=== PATIENT | female | born 1950 | race Caucasian/White ===

== ENCOUNTER 2017-12-17 10:19 | Inpatient (IN) | payer OTHER, MEDICARE ==
--- NOTE | 2017-12-17 10:51 | ED Physician Chart ---
ED Chief Complaint/HPI - Patient Information Date Seen:: 12/17/17 Time Seen:: 10:51 Chief Complaint:: Chest pain History of Present Illness:: 67 yo female had chest pain for 3 days. The pain started on the right chest when was walking 3 days ago, the pain then radiated to left chest and left shoulder and left neck. The patient also had SOB on exertion. Each time the pain last for 20 minutes and would return when she had activity. The pain had became worse. She had history of DM II and hyperlipidemia. She had never had chest pain before. She was smoking cigarettes some days. Allergies:: Allergies Allergy/AdvReac Type Severity Reaction Status Date / Time MDX No Known Allergies - Nka Allergy Verified 12/26/15 23:20 [No Known Allergies - Nka] ED Review of Systems - Review of Systems General/Constitutional: No fever, No chills Skin: No skin lesions Head: Headache Eyes: No pain ENT: No earache Neck: Neck pain Cardio Vascular: Chest pain Pulmonary: SOB GI: No nausea, No vomiting Musculoskeletal: No bone or joint pain Neurological: No focal symptoms ED Past Medical History - Past Medical History Past Medical History: HTN, DM, Dyslipidemia, Arthritis Social History: Smoker, No Alcohol, No Drug Use Surgical History: Cholecystectomy Family Medical History - Family Member Mother History Unknown: Yes Ethnicity: ED Physical Exam - Physical Examination General/Constitutional: Awake, Alert Head: Atraumatic Eyes: PERRL, EOMI Skin: No skin lesions ENMT: Nasal exam nl Neck: No nuchal rigidity Respiratory: No Wheeze/Rhonchi/Rales Cardio Vascular: RRR, No murmur, gallop, rubs, NL S1 S2 GI: No tenderness/rebounding/guarding Extremities: normal strength in all extremities Neuro/Psych: No focal deficits ED Labs/Radiology/EKG Results - EKG Interpretations EKG Time:: 10:23 Rate & Rhythm: Sinus rhythm [place]: Left axis deviation ED Assessment - Assessment General Assessment: Chest pain DM II, poorly controlled Hypertension Dehydration Assessment/Comments:: CBC, CMP, UA CXR, EKG Trop I BNP D-dimer Aspirin 325mg PO Nitroglycerin 0.4mg SL NS 1L IV bolus Tylenol 650mg PO Admit for cardiac work up ED Septic Shock - . Is Septic Shock (SBP<90, OR Lactate>4 mmol\L) present?: No ED Reassessment (Disposition) - Reassessment Reassessment Condition:: Improved - Patient Disposition Discharge/Transfer:: Acute Care w/in this hosp Admitting Medical Physician:: Christiano Acuña Vitals and Appearance - Vitals Vitals: Vital Signs - 24 hr 12/17/17 12/17/17 12/17/17 10:57 11:21 11:27 Temp 98.3 F 97.7 F HR 83 67 64 RR 16 16 BP 157/85 133/73 133/73 O2 Sat % 96 96 12/17/17 12:13 Temp 97.5 F HR 59 RR 16 BP 128/69 O2 Sat % 100
[2017-12-17 11:04] LABS: % BASOPHILS 0.1 % (0.0-2.0); % EOSINOPHILS 1.5 % (0.0-5.0); % LYMPHOCYTES 24.3 % (20.0-50.0); % MONOCYTES 7.7 % (2.0-10.0); % NEUTROPHILS 66.4 % (40.0-80.0); EOSINOPHILE ABSOLUTE 0.1 Th/cmm (0.1-0.4); HEMATOCRIT 43.3 % (41.0-60); HEMOGLOBIN 14.3 gm/dL (12-16); LYMPHOCYTE ABSOLUTE 1.9 Th/cmm (1.5-3.0); MEAN CELL VOLUME 90.9 fl (81-100); MEAN CORPUSCULAR HEMOGLOBIN 30.1 pg (27.0-31.0); MEAN CORPUSCULAR HGB CONC 33.1 pg (28.0-36.0); MEAN PLATELET VOLUME 8.3 fl; MONOCYTE ABSOLUTE 0.6 Th/cmm (0.3-1.0); NEUTROPHILE ABSOLUTE 5.2 Th/cmm (1.8-8.0); RED BLOOD COUNT 4.76 Mil/cmm (3.80-5.20); RED CELL DISTRIBUTION WIDTH 12.9 % (11.5-20.0)
[2017-12-17 11:05] LABS: PLATELET COUNT 370 Th/cmm (150-400); WHITE BLOOD COUNT 7.8 Th/cmm (4.8-10.8)
[2017-12-17 11:21] LABS: ALB/GLOB RATIO 1.4 (1.0-1.8); ALBUMIN 4.2 gm/dL (3.7-5.3); ALKALINE PHOSPHATASE 58 U/L (34-104); ANION GAP 11.5 (7.0-16.0); BILIRUBIN,TOTAL 0.5 mg/dL (0.3-1.0); BUN - UREA NITROGEN 17 mg/dL (7-25); CHLORIDE 107 mEq/L (98-107); CHOLESTEROL 154 mg/dL (<200); CREATININE - SERUM 0.7 mg/dL (0.6-1.2); GFR AFRICAN-AMERICAN > 60.0 ml/min (>90); GFR NON AFRICAN-AMERICAN > 60.0 ml/min; GLUCOSE 212 mg/dL (70-105); HDL -HIGH DENSITY LIPOPROTEIN 50 mg/dL (23-92); POTASSIUM SERUM 3.5 mEq/L (3.5-5.1); SGOT 14 U/L (13-39); SGPT/ALT 12 U/L (7-52); SODIUM SERUM 138 mEq/L (136-145); TOTAL PROTEIN,SERUM 7.2 gm/dL (6.0-8.3); TRIGLYCERIDES 139 mg/dL (<150)
[2017-12-17] MEDS ORDERED: Sodium Chloride 0.9% 1,000 ML IV ONE (11:32)
[2017-12-17 13:13] LABS: A1C % 7.9 % (4.0-6.0)
[2017-12-17 19:52] LABS: INR 0.95 (0.5-1.4); PROTHROMBIN TIME (TEST) 9.9 SECONDS (9.5-11.5)
[2017-12-17] MEDS ORDERED: Enoxaparin Subq per Pharmacy MC SCH (21:00)
[2017-12-17] MEDS ORDERED: Enoxaparin 40 mg/0.4 mL 0.4mL Syr SUBQ SCH (21:00)
[2017-12-17] MEDS ORDERED: Morphine Sulfate 2 mg/mL 1mL Syr IVP PRN (21:11)
[2017-12-18] MEDS: INSULIN ASPART SLIDING SCALE 100 UNITS/ML UNIT SUBQ SCH ×3 (06:45→16:33)
[2017-12-18 07:07] LABS: CHOLESTEROL 140 mg/dL (<200); HDL -HIGH DENSITY LIPOPROTEIN 39 mg/dL (23-92); TRIGLYCERIDES 186 mg/dL (<150)
--- NOTE | 2017-12-18 07:41 | Diagnostic Imaging Report ---
CHEST X-RAY: AP view INDICATION: Chest pain COMPARISON: 12/27/2015 FINDINGS: Chronic lung changes are noted with no focal consolidation or effusions. Borderline cardiomegaly is noted. Degenerative changes of the spine are noted. IMPRESSION: Chronic lung changes with no focal airspace consolidation identified. Borderline cardiomegaly.
--- NOTE | 2017-12-18 08:45 | History and Physical ---
History of Present Illness - HPI Chief Complaint: chest pain x 3 days HPI: 67 y/o female who presents to [facility] for 3 day h/o CP. Patient states to have pain from the right side of the chest with exertion which then radiated to the left should,arm,neck. Patient admits to SOB with exertion. She has a previous medical history of diabetes mellitus, hypertension and has history of smoking cigarettes for the past few days Initial Labwork WBC 7.8 H/H 14.3/43.3 plat 370K Na 138 K 3.5 Bun/Cr 17/0.7 glu 212 HgA1c 7.9 trop 0.05-->0.22-->0.29-->0.31 LDL 76 HDL 39 TC 140 Tri 186 Patient was subsequently admitted to telemetry for further evaluation and treatment. Vital Signs: Last Vital Signs Temp 98.4 F 12/18/17 04:00 Pulse 68 12/18/17 04:00 Resp 17 12/18/17 04:00 BP 139/72 12/18/17 04:00 Pulse Ox 98 12/18/17 04:00 Past Medical History Cardiovascular: Report: HTN, Hyperlipidemia Pulmonary: Report: Bronchitis ONCOLOGY CONSULTANT: Report: No Pertinent Hx GI: Report: No Pertinent Hx Psych: Report: No Pertinent Hx Musculoskeletal: Report: No Pertinent Hx Rheumatologic: Report: No pertinent Hx Infectious Disease: Report: No Pertinent Hx Renal/: Report: No Pertinent Hx Endocrine: Report: Diabetes Dermatology: Report: No Pertinent Hx - Past Surgical History Past Surgical History: Cholecystectomy Family Medical History - Family Member Mother History Unknown: Yes Ethnicity: Social History Smoke: 1 pack per day Alcohol: None Drugs: None Lives: With Family - Medications Home Medications: Home Medication Medication Instructions Recorded Type Metformin Hydrochloride [Metformin 500 mg PO BID 10/26/12 History HCl] Aspirin [Aspirin Chewable] 1 tab PO DAILY 12/26/15 History Rosuvastatin Calcium [Crestor] 10 mg PO DAILY 12/26/15 History Gabapentin [Neurontin*] 100 mg PO Q8H PRN #20 cap 12/27/15 Rx - Allergies Allergies/Adverse Reactions: Allergies Allergy/AdvReac Type Severity Reaction Status Date / Time No Known Allergies Allergy Verified 12/17/17 10:55 Review of Systems - Review of Systems Constitutional: Report: No Significant Eyes: Report: No Significant ENT: Report: No Significant Respiratory: Report: No Significant Cardiovascular: Report: Chest Pain Gastrointestinal: Report: No Significant Genitourinary: Report: No Significant Musculoskeletal: Report: No Significant Skin: Report: No Significant Neurological: Report: No Significant Physical Exam - Physical Exam HEENT: Report: Ears Nose Throat within normal limits, Pharnyx within normal limits Neck: Report: Within normal limits. Denies: Thyromegaly Cardiovascular Systems: Report: +s1/s2 noted, Regular, Rate and Rhythm Respiratory: Report: Breath Sounds are within normal limits, Clear to Auscultation of lung leiva Abdomen: Report: Non-tender to palpation Back: Report: Inspection of back is within normal limits. Extremities: Report: Non-tender to palpation. Skin: Report: Color of skin is within normal limits, Warm Neuro/Psych: Report: Mood affect is within normal limits, A+Ox3, CN II-XII intact - Lab Results All Lab Results last 24 hours: Laboratory Results - last 24 hr 12/17/17 12/18/17 12/18/17 18:00 00:40 05:42 POC Glucose 144 H Troponin I 0.22 H* D 0.29 H* D Triglycerides Cholesterol LDL Cholesterol Direct HDL Cholesterol TSH 12/18/17 12/18/17 12/18/17 06:36 06:36 06:36 POC Glucose Troponin I 0.31 H* Triglycerides 186 H Cholesterol 140 LDL Cholesterol Direct 76 HDL Cholesterol 39 TSH 1.29 - Assessment Assessment: Current Active Problems Problem Status Onset CHEST PAIN WITH RADIATION TO BACK/NECK Acute chest pain acs ruled in hypertension diabetes mellitus hyperlipidemia smoker - Plan Plan: cardiology consult lovenox 60mg daily continue home meds
[2017-12-18] MEDS ORDERED: ROSUVASTATIN CALCIUM 10 MG PO SCH (09:00)
[2017-12-18] MEDS ORDERED: METFORMIN HYDROCHLORIDE 500 MG PO SCH (09:00)
[2017-12-18] MEDS: Aspirin 81mg Chewable Tab PO SCH ×2 (09:57→13:38)
[2017-12-18] MEDS: Pantoprazole 40 mg EC Tab PO SCH (09:57)
[2017-12-18] MEDS: Enoxaparin 60 mg/0.6 mL 0.6mL Syr SUBQ SCH ×2 (09:58→21:54)
--- NOTE | 2017-12-18 10:21 | Consultation ---
DATE OF CONSULTATION: 12/17/2017 HISTORY OF PRESENT ILLNESS: This 67-year-old female was seen and examined at the courtesy of Dr. Acuña. The patient was admitted here with chest pains, described the pain being precordial in location, some radiation to the axilla. Was evaluated in the Emergency Room and then admitted. The patient does have a history of arteriosclerotic heart disease, history of diabetes, history of hyperlipidemia. She is status post cholecystectomy. On questioning, there was no history of headache, no history of dizziness, no history of syncope, no history of seizures, no history of cough, no history of fever, no history of any hemoptysis, no history of palpitations, no history of orthopnea, no history of PND, no history of abdominal pain. No history of nausea or vomiting. No history of hematemesis. No history of melena, no history of bleeding per rectum or change in bowel habits. No history of swelling over the legs, no history of intermittent claudications or phlebitis. PAST MEDICAL HISTORY: Usual childhood diseases. No history of rheumatic fever. No history of scarlet fever. Other past history as mentioned above. FAMILY HISTORY: Arteriosclerotic heart disease. SOCIAL HISTORY: Denies smoking or drinking. PHYSICAL EXAMINATION: VITAL SIGNS: Heart rate was 83, blood pressure was 157/85, temperature 98.3, respirations 16. SKIN: Normal. HEENT: Head normocephalic. Eyes, conjunctivae are pink. There is no icterus in the eyes. Pupils equally reactive to light. NECK: There were no increased jugular venous distention, no thyromegaly, no lymphadenopathy. Carotids equal on both sides. CHEST: Bilaterally symmetrical, moved well with respirations. Respiratory movements equal on both sides. Trachea is central. There is note to percussion. Breath sounds, few scattered rales. CARDIOVASCULAR SYSTEM: PMI not well localized. There is no pulsation or thrill. No parasternal heave. S1 normal, S2 physiologic. There was no S3, no rub. ABDOMEN: Soft. No tenderness, no rigidity, no guarding, and no organomegaly. Bowel sounds normal. EXTREMITIES: There is no edema, no calf tenderness. Peripheral pulses slightly diminished. LABORATORY DATA: On reviewing the labs, hemoglobin A1c was 7.9. TSH was 0.98. D-dimer was 193, that is within normal limits. Sodium 138, potassium 3.5, chloride 107, CO2 of 23, BUN 17, creatinine 0.7, glucose 212, cholesterol 154, triglycerides 139, HDL 50, LDL 90. BNP was 93.1, that is within normal limits. First troponin was 0.05. WBC was 7.8, hemoglobin 14.3, hematocrit 43.3, platelet count was 370. EKG showed sinus rhythm, heart rate 62, normal axis, T-wave inversion in the precordial leads from V1-V5 which may be due to subendocardial ischemia. IMPRESSION: Chest pains, rule out myocardial infarction, coronary artery disease, diabetes mellitus, hyperlipidemia, status post cholecystectomy, hypertension. PLAN: Suggest to continue present management. Suggest to continue cardiac monitoring. To get serial EKG, serial troponins. Get echocardiogram in a.m. In the meantime, to continue aspirin, Lovenox, Isordil 10 mg t.i.d., Lopressor 25 q. 8, Zocor 20, lisinopril 5 daily. Further recommendations will be made depending on the results of the tests available. JOB# [id number]
[2017-12-19] MEDS: INSULIN ASPART SLIDING SCALE 100 UNITS/ML UNIT SUBQ SCH ×2 (01:25→07:32)
--- NOTE | 2017-12-19 08:40 | General Progress Note ---
Subjective - Review of Systems Service Date: 12/19/17 Subjective: Awake, Alert, Afebrile. Objective - Results Result Diagrams: 12/17/17 10:30 12/17/17 10:30 Recent Labs: Laboratory Last Values WBC 7.8 Th/cmm (4.8-10.8) D 12/17/17 10:30 RBC 4.76 Mil/cmm (3.80-5.20) 12/17/17 10:30 Hgb 14.3 gm/dL (12-16) 12/17/17 10:30 Hct 43.3 % (41.0-60) 12/17/17 10:30 MCV 90.9 fl (81-100) 12/17/17 10:30 MCH 30.1 pg (27.0-31.0) 12/17/17 10:30 MCHC Differential 33.1 pg (28.0-36.0) 12/17/17 10:30 RDW 12.9 % (11.5-20.0) 12/17/17 10:30 Plt Count 370 Th/cmm (150-400) D 12/17/17 10:30 MPV 8.3 fl 12/17/17 10:30 Neutrophils % 66.4 % (40.0-80.0) 12/17/17 10:30 Lymphocytes % 24.3 % (20.0-50.0) 12/17/17 10:30 Monocytes % 7.7 % (2.0-10.0) 12/17/17 10:30 Eosinophils % 1.5 % (0.0-5.0) 12/17/17 10:30 Basophils % 0.1 % (0.0-2.0) 12/17/17 10:30 PT 9.9 SECONDS (9.5-11.5) 12/17/17 10:30 INR 0.95 (0.5-1.4) 12/17/17 10:30 PTT (Actin FS) 25.0 SECONDS (26.0-38.0) L 12/17/17 10:30 D-Dimer 193 ng/mL (100-400) 12/17/17 10:30 Sodium 138 mEq/L (136-145) 12/17/17 10:30 Potassium 3.5 mEq/L (3.5-5.1) 12/17/17 10:30 Chloride 107 mEq/L (98-107) 12/17/17 10:30 Carbon Dioxide 23.0 mEq/L (21.0-31.0) 12/17/17 10:30 Anion Gap 11.5 (7.0-16.0) 12/17/17 10:30 BUN 17 mg/dL (7-25) 12/17/17 10:30 Creatinine 0.7 mg/dL (0.6-1.2) 12/17/17 10:30 Est GFR ( Amer) > 60.0 ml/min (>90) 12/17/17 10:30 Est GFR (Non-Af Amer) > 60.0 ml/min 12/17/17 10:30 BUN/Creatinine Ratio 24.3 12/17/17 10:30 Glucose 212 mg/dL (70-105) H 12/17/17 10:30 POC Glucose 128 MG/DL (70 - 105) H 12/19/17 06:12 Hemoglobin A1c % 7.9 % (4.0-6.0) H 12/17/17 10:30 Calcium 9.0 mg/dL (8.6-10.3) 12/17/17 10:30 Total Bilirubin 0.5 mg/dL (0.3-1.0) 12/17/17 10:30 AST 14 U/L (13-39) 12/17/17 10:30 ALT 12 U/L (7-52) 12/17/17 10:30 Alkaline Phosphatase 58 U/L (34-104) 12/17/17 10:30 Troponin I 0.20 ng/mL (0.01-0.05) H* D 12/19/17 07:10 B-Natriuretic Peptide 93.1 pg/mL (5.0-100.0) 12/17/17 10:30 Total Protein 7.2 gm/dL (6.0-8.3) 12/17/17 10:30 Albumin 4.2 gm/dL (3.7-5.3) 12/17/17 10:30 Globulin 3.0 gm/dL 12/17/17 10:30 Albumin/Globulin Ratio 1.4 (1.0-1.8) 12/17/17 10:30 Triglycerides 186 mg/dL (<150) H 12/18/17 06:36 Cholesterol 140 mg/dL (<200) 12/18/17 06:36 LDL Cholesterol Direct 76 mg/dL (75-193) 12/18/17 06:36 HDL Cholesterol 39 mg/dL (23-92) 12/18/17 06:36 TSH 1.29 uIU/ml (0.34-5.60) 12/18/17 06:36 - Physical Exam Vitals and I&O: Vital Signs Temp 98.2 F 12/19/17 08:10 Pulse 63 12/19/17 08:10 Resp 17 12/19/17 08:10 BP 125/80 12/19/17 08:10 Pulse Ox 98 12/19/17 08:10 Intake & Output 12/18/17 12/19/17 12/19/17 18:59 06:59 18:59 Intake Total 850 150 Balance 850 150 Weight (lbs) 70.76 kg 70.76 kg Intake: Oral 850 Tube Feeding 150 Other: # Voids 3 3 # Bowel Movements 4 0 Active Medications: Current Medications Acetaminophen (Tylenol) 650 mg PO Q6H PRN PRN Reason: Pain (Moderate) Stop: 02/15/18 20:58 Last Admin: 12/18/17 21:54 Dose: 650 mg Aspirin (Aspirin Chewable) 81 mg PO DAILY [facility] Stop: 02/16/18 08:59 Last Admin: 12/18/17 09:57 Dose: 81 mg Aspirin (Aspirin Chewable) 81 mg PO DAILY [facility] Stop: 02/16/18 08:59 Last Admin: 12/18/17 13:38 Dose: Not Given Enoxaparin Sodium (Lovenox) 60 mg SUBQ Q12HR [facility] Stop: 02/16/18 08:59 Last Admin: 12/18/17 21:54 Dose: 60 mg Gabapentin (Neurontin) 100 mg PO Q8HR PRN PRN Reason: Pain (Moderate) Stop: 02/15/18 20:59 Last Admin: 12/17/17 21:12 Dose: 100 mg Insulin Aspart (Novolog Insulin Sliding Scale) 0 units SUBQ ACHS [facility] PRN Reason: Protocol Stop: 02/16/18 07:29 Last Admin: 12/19/17 07:32 Dose: Not Given Isosorbide Dinitrate (Isordil) 10 mg PO TID [facility] Stop: 02/16/18 08:59 Last Admin: 12/18/17 21:53 Dose: 10 mg Lisinopril (Zestril) 5 mg PO DAILY [facility] Stop: 02/16/18 08:59 Last Admin: 12/18/17 09:58 Dose: 5 mg Metformin HCl (Glucophage) 500 mg PO BID [facility] Stop: 02/16/18 08:59 Last Admin: 12/18/17 16:29 Dose: 500 mg Metoprolol Tartrate (Lopressor) 25 mg PO Q8H [facility] Stop: 02/16/18 07:59 Last Admin: 12/19/17 00:31 Dose: Not Given Miscellaneous (Lovenox Subq Per Pharmacy) 1 ea MC PRN [facility] PRN Reason: Protocol Stop: 02/15/18 20:59 Morphine Sulfate (Morphine) 1 mg IVP Q4HR PRN PRN Reason: Pain (Severe) Stop: 02/15/18 21:10 Pantoprazole Sodium (Protonix) 40 mg PO DAILY [facility] Stop: 02/16/18 08:59 Last Admin: 12/18/17 09:57 Dose: 40 mg Simvastatin (Zocor) 20 mg PO HS [facility] Stop: 02/16/18 20:59 Last Admin: 12/18/17 21:54 Dose: 20 mg Sitagliptin Phosphate (Januvia) 25 mg PO DAILY [facility] Stop: 02/16/18 12:59 Last Admin: 12/18/17 13:47 Dose: 25 mg General: Alert, Oriented x3 HEENT: Atraumatic, PERRLA, EOMI Neck: Supple, no JVD, no Thyromegaly Cardiovascular: Regular rate, Normal S1, Normal S2 Lungs: Clear to auscultation Abdomen: Bowel sounds, Soft Extremities: no Clubbing, no Cyanosis, no Edema Neurological: Normal gait - Procedures Procedures: Procedures Procedure Code Date INJECT/INFUSE NEC 99.29 11/15/12 Assessment/Plan - Problem List Patient Problems: All Active Problems CHEST PAIN WITH RADIATION TO BACK/NECK (Acute) Cholecystitis (Acute) K81.9 UTI (urinary tract infection) (Acute) - Assessment Assessment: Current Active Problems Problem Status Onset CHEST PAIN WITH RADIATION TO BACK/NECK Acute chest pain acs ruled in hypertension diabetes mellitus hyperlipidemia smoker - Plan Plan: cardiology consult lovenox 60mg daily continue home meds repeat cbc,cmp Nutritional Asmnt/Malnutr-PDOC - Dietary Evaluation Malnutrition Findings (Please click <Entered> for more info): Nutritional Asmnt/Malnutrition Start: 12/18/17 17: 18 Text: Status: Complete Freq: Document 12/18/17 17:18 LYNNDERRICK (Rec: 12/18/17 17:33 LCDERRICK [id number]) Nutritional Asmnt/Malnutrition Patient General Information Nutritional Screening High Risk Consult Diagnosis Cp/HTN, DM Pertinent Medical Hx/Surgical Hx HTN, DM, dyslipidemia, arthritis, cholecystectomy Subjective Information Consult received for BG 181. Pt seen in bed having U/S, daughter at bedside. Daughter reported pt had good appetite, ate well, about 75% of lunch, no question or concern about current diet or food. per notes, PO intake 80-100%. Current Diet Order/ Nutrition Support Cardiac CCHO 60gm Pertinent Medications novolog, glucophage, protonix Pertinent Labs 12/17 Glucose 212, A1c 7.9 12/18 POC 111-156 Nutritional Hx/Data Height 1.52 m Height (Calculated Centimeters) 152.4 Current Weight (lbs) 70.76 kg Weight (Calculated Kilograms) 70.8 Weight (Calculated Grams) 65840.4 [place] Body Weight 100 % [place] Body Weight 156 Body Mass Index (BMI) 30.4 Weight Status Obese GI Symptoms GI Symptoms None Last BM 12/17 Difficult in: None Skin Integrity/Comment: intact Current %PO Good (75-100%) Estimated Nutritional Goals BEE in Kcals: Adj wt of IBW Calories/Kcals/Kg 25-30 Kcals Calculated [id number] Protein: Adj wt of IBW Protein g/k-1.2 Protein Calculated 52-62 Fluid: ml 6832-2125 Nutritional Problem 1. Problem Problem altered nutrition related lab values Etiology hx of DM Signs/Symptoms: Glucose 212, A1c 7.9 POC 111-156 Malnutrition Alert Protein-Calorie Malnutrition N/A Is there a minimum of two criteria No selected? Query Text:Check all the applicable criteria. A minimum of two criteria are recommended for diagnosis of either severe or non-severe malnutrition. Intervention/Recommendation Comments 1. Continue with current diet as ordered. 2. Monitor PO intake, wt, labs and skin integrity 3. F/U as low risk in 7d ays, 12/25, PO check 12/21 Expected Outcomes/Goals Expected Outcomes/Goals 1. PO intake to meet at least 75% of nutritional needs. 2. Wt stability, skin to remain intact, labs to improve
[2017-12-19 08:50] LABS: EOSINOPHILE ABSOLUTE 0.6 Th/cmm (0.1-0.4); HEMATOCRIT 40.5 % (41.0-60); HEMOGLOBIN 13.4 gm/dL (12-16); LYMPHOCYTE ABSOLUTE 0.2 Th/cmm (1.5-3.0); MEAN PLATELET VOLUME 8.8 fl; MONOCYTE ABSOLUTE 1.7 Th/cmm (0.3-1.0); NEUTROPHILE ABSOLUTE 6.5 Th/cmm (1.8-8.0); PLATELET COUNT 332 Th/cmm (150-400); RED BLOOD COUNT 4.45 Mil/cmm (3.80-5.20); RED CELL DISTRIBUTION WIDTH 12.8 % (11.5-20.0)
[2017-12-19 09:05] LABS: ANION GAP 10.6 (7.0-16.0); BUN - UREA NITROGEN 21 mg/dL (7-25); CALCIUM SERUM 9.2 mg/dL (8.6-10.3); CARBON DIOXIDE 24.6 mEq/L (21.0-31.0); CHLORIDE 107 mEq/L (98-107); CREATININE - SERUM 0.6 mg/dL (0.6-1.2); GFR AFRICAN-AMERICAN > 60.0 ml/min (>90); GFR NON AFRICAN-AMERICAN > 60.0 ml/min; GLUCOSE 158 mg/dL (70-105); POTASSIUM SERUM 4.2 mEq/L (3.5-5.1); SODIUM SERUM 138 mEq/L (136-145)
[2017-12-19 09:38] LABS: BAND NEUTROPHILE 1 % (0-10); EOSINOPHIL 1 % (0-5); LYMPHOCYTE 34 % (20-50); MONOCYTE 7 % (2-10); NEUTROPHILS 57 % (40-80); TOTAL CELLS COUNTED 100
[2017-12-19] MEDS: Aspirin 81mg Chewable Tab PO SCH ×2 (09:50→09:55)
[2017-12-19] MEDS: Pantoprazole 40 mg EC Tab PO SCH (09:50)
[2017-12-19] MEDS: Enoxaparin 60 mg/0.6 mL 0.6mL Syr SUBQ SCH (09:55)
--- NOTE | 2017-12-19 14:23 | Cardiology ---
12/18/2017 ECHOCARDIOGRAM REPORT M-MODE ECHOCARDIOGRAM: Mitral valve, anterior leaflet of mitral valve shows normal excursion, EF velocity. Posterior leaflet of the mitral valve shows normal excursion. Left ventricular posterior wall shows increased thickness, normal excursion. Interventricular septum shows increased thickness, normal excursion, hypertrophy of the left ventricle, ejection fraction 60%. Left atrium normal. Aortic root shows normal dimension, normal excursion of aortic leaflets. CONCLUSION: Hypertrophy of the left ventricle, ejection fraction 60%. TWO-D ECHO: Long axis view showed normal sized left ventricle with hypertrophy of the left ventricle. Left atrium normal. Aortic root shows normal dimension, normal excursion of aortic leaflets. Short axis view of mitral valve normal. Short axis view of aortic valve normal. Apical four chamber view showed normal sized left ventricle, left atrium, right ventricle, right atrium ____. Ejection fraction 60%. CONCLUSION: Hypertrophy of the left ventricle, ejection fraction 60%. Doppler study shows mild mitral regurgitation, tricuspid regurgitation, pulmonary regurgitation, prominent A wave consistent with poor compliance of left ventricle. [facility]# [id number]
[2017-12-19] MEDS ORDERED: INSULIN ASPART SLIDING SCALE 100 UNITS/ML UNIT SUBQ SCH ×3 (16:30)
--- NOTE | 2017-12-21 21:16 | Discharge Summary ---
DATE OF DISCHARGE: 12/19/2017 ATTENDING PHYSICIAN: Christiano Acuña. PRELIMINARY DIAGNOSES: 1. Chest pain, rule out acute coronary syndrome. 2. Diabetes mellitus. 3. Hypertension. 4. Hyperlipidemia. 5. History of smoking. 6. Dehydration. DISCHARGE DIAGNOSES: 1. Chest pain, acute coronary syndrome ruled in. 2. Diabetes mellitus. 3. Hypertension. 4. Hyperlipidemia. 5. Smoker. 6. Dehydration, now improved. BRIEF HPI: This is a 67-year-old female who presents to [facility] ER for a 3-day history of chest pain. She states that she had pain on breathing to the right side of her chest upon exertion, which then radiated to the left side, left shoulder, left arm and neck. The patient was noted to have shortness of breath. Upon exertion, she has a previous medical history of diabetes mellitus, hypertension and history of smoking cigarettes for the past several years. Initial lab work done in the ER revealed a white count of 7.8, hemoglobin 14.3, hematocrit of 43.3 and platelets 370. Her hemoglobin A1c was 7.9. Her sodium was 138, potassium 3.5, BUN and creatinine was 17/0.7, glucose was elevated at 212. Her troponin-I initially was 0.05, her LDL revealed was 76 and HDL 39. Total cholesterol was 140 and triglycerides 186. The patient was then subsequently admitted to telemetry for further evaluation and treatment. HOSPITAL COURSE: The patient was seen and evaluated by Cardiology. Please see dictated report. Serial troponin levels revealed that her troponin did increase to 0.22, repeat troponin 8 hours later increased to 0.29 and then 8 hours later had increased to 0.39. The patient was initially placed on Lovenox for anticoagulation. The patient's chest pain improved, was given aspirin and nitroglycerin and blood pressure medications suggested to decrease her blood pressure. The patient was subsequently discharged in stable condition, was to continue her home medications, aspirin 81 mg was added to her regimen per Cardiology. She was advised to stop smoking. The patient was to follow up with her regular physician in 2-3 days. PSYCHIATRIC# [id number]
== END 2017-12-19 16:45 | disposition home or self-care (01) | DRG 311 ==
LOC: ER 10:19 → TELE 17:00
PROVIDERS: ADMIT Family Medicine; ATTEND Family Medicine
DX: I24.9 Acute ischemic heart disease, unspecified (principal); E11.65 Type 2 diabetes mellitus with hyperglycemia; I25.10 Atherosclerotic heart disease of native coronary artery without angina pectoris; I10 Essential (primary) hypertension; E78.5 Hyperlipidemia, unspecified; F17.210 Nicotine dependence, cigarettes, uncomplicated; M19.90 Unspecified osteoarthritis, unspecified site; E86.0 Dehydration; Z79.84 Long term (current) use of oral hypoglycemic drugs; Z79.82 Long term (current) use of aspirin; Z90.49 Acquired absence of other specified parts of digestive tract
CPT/HCPCS: 36415-UA; 71045-TC; 80048-TC; 80053-TC; 80061-TC; 82948-90; 83036-90; 83880-TC; 84443-TC; 84484-TC; 85007-TC; 85025-TC; 85027-TC; 85379-TC; 85610-TC; 93005; 96374; J0360; J1650; J1815; J7030; Z7610